=== PATIENT | male | born 1990 | race Two or more races ===

== ENCOUNTER 2016-12-28 00:04 | Emergency (ER) | payer SELFPAY ==
[~2016-12-28] VITALS: Ht 177.8 cm; Wt 91.4 kg
[2016-12-28 00:06] VITALS: BP 138/75
== END 2016-12-28 01:27 | disposition home or self-care (01) ==
LOC: ED 00:55
DX: G89.11 Acute pain due to trauma (principal); M25.561 Pain in right knee; X50.1XXA Overexertion from prolonged static or awkward postures, initial encounter; Y93.66 Activity, soccer; Y99.8 Other external cause status; Y92.099 Unspecified place in other non-institutional residence as the place of occurrence of the external cause
CPT/HCPCS: 29505

== ENCOUNTER 2018-08-09 16:33 | Emergency (ER) | payer BC ==
[~2018-08-09] VITALS: Ht 180.3 cm; Wt 93.1 kg
[2018-08-09 16:35] VITALS: BP 134/84
== END 2018-08-09 17:18 | disposition home or self-care (01) ==
LOC: ED 17:09
DX: R51 Headache (principal); J30.2 Other seasonal allergic rhinitis
CPT/HCPCS: 99283